=== PATIENT | female | born 1940 | race Caucasian/White ===

== ENCOUNTER 2017-02-18 01:30 | Observation (INO) ==
--- NOTE | 2017-02-18 04:04 | Emergency Department Note ---
Arrival - Arrival Chief Complaint: Syncope ED Nursing Triage Note: Patient to triage via WC from sleep lab after an LEAD RECREATION ASSISTANT was called for patient having syncopal episode after ambulating from restroom. Patient states she she stood up, she noted herself to feel hot in the face and dizzy. LEAD RECREATION ASSISTANT team has provided EKG print outs from sleep lab. Patient has readings of fib with RVR. EKG done in triage. Patient does have hx of A fib and had an ablasion in jul of this year. Mode of Arrival: Wheelchair Time Seen by Provider: 02/18/17 01:58 - History of Present Illness HPI Narrative: This is a 76-year-old white female with a history of hypertension, hyperlipidemia, hypothyroidism and symptomatic paroxysmal atrial fibrillation which has been controlled by amiodarone but was unable to tolerate the side effects so had electrophysiologic studies with ablation in July 2016. In the past her episodes of atrial fibrillation have resulted in palpitations but she had one episode of syncope several years ago in connection with atrial fibrillation. After the ablation the patient's amiodarone was discontinued but she was continued on a beta-darrian which was recently stopped because of a heart rate of 52. The patient does not have a pacer. Patient also has sleep apnea for which she uses a CPAP machine. She was in the hospital having her third sleep study hoping to have sufficiently long periods of apnea to allow the government to pay for her CPAP machine. During the sleep study the patient got up to go to the bathroom and had a syncopal episode where she felt hot and dizzy and fell unconscious to the floor. Review of the tracing that occurred at the moment of syncope showed atrial fibrillation which is now returned to normal sinus rhythm Allergies/Adverse Reactions: Allergies Allergy/AdvReac Type Severity Reaction Status Date / Time levofloxacin [From Levaquin] Allergy RASH Verified 02/18/17 01:38 morphine Allergy Vomiting Verified 02/18/17 01:38 Penicillins Allergy RASH Verified 02/18/17 01:38 Sulfa (Sulfonamide Allergy Swelling Verified 02/18/17 01:38 Antibiotics) of Lip/Tongue/Throat sulfamethoxazole Allergy Unknown/Unable Verified 02/18/17 01:38 [From Bactrim] to obtain trimethoprim [From Bactrim] Allergy Unknown/Unable Verified 02/18/17 01:38 to obtain Home Medications: Home Medications Medication Instructions Recorded Confirmed Type Amlodipine Besylate 2.5 mg PO DAILY 05/15/16 08/12/16 History Clorazepate [Tranxene] 3.75 mg PO DAILY PRN 05/15/16 08/12/16 History Gabapentin 300 mg PO BEDTIME 05/15/16 08/12/16 History Meloxicam 7.5 mg PO BID 05/15/16 08/12/16 History Metoprolol Succinate 25 mg PO DAILY 05/15/16 08/12/16 History Valsartan/Hydrochlorothiazide 1 tablet PO DAILY 05/15/16 08/12/16 History [Valsartan-Hctz 160-12.5 mg Tab] Warfarin Sodium 4 mg PO DIRECTED 05/15/16 08/12/16 History Warfarin Sodium 5 mg PO DIRECTED 05/15/16 08/12/16 History Acetaminophen Tab [Tylenol Tab] 650 mg PO Q4H PRN #30 tablet 08/14/16 Rx Aspirin EC Tab 81 mg PO DAILY #30 tablet 08/14/16 Rx Pantoprazole Tab [Protonix Tab] 40 mg PO BID #60 tablet 08/14/16 Rx Review of System - Review of System Constitutional: Absent: fever, night sweats, weakness Eyes: Absent: redness, vision change Head/Ears/Nose/Throat: Absent: epistaxis, nasal drainage Respiratory: Absent: respiratory distress, wheezing Cardiovascular: Absent: dyspnea on exertion, orthopnea, edema Gastrointestinal: Absent: diarrhea, constipation, hematemesis, melena Genitourinary female: Absent: frequency, genital lesions, hematuria Musculoskeletal: Absent: joint swelling, lower back pain, leg pain, neck pain Skin: Absent: change in color, change in hair/nails, pruritus Neurological: Absent: numbness, paresthesias, confusion Psychiatric: Absent: suicidal thoughts Endocrine: Absent: heat intolerance, polydipsia, polyuria Hematological/Lymphatic: Absent: easy bruising, lymphadenopathy Allergic/Immunologic: Absent: urticaria, itchy eyes Medical,Surgical,& Family Hx - Medical History Cardio: History of: Cardiac Dysrhythmia (AFIB), Hypertension, Cardiovascular Problems (atrial fib, orthostasis) Neurology: No history of: Seizures Endocrine: History of: Dyslipidemia Respiratory: History of: Bronchitis Genitourinary: History of: Recurring Urinary Tract Infections Gastrointestinal: History of: GERD, GI Problems (chronic constipation) Reproductive: History of: Breast Cancer (left partial mastectomy 1999) Other: History of: Cancer (breat 1999) - Surgical History Abdominal Surgeries: Surgical HX of: Appendectomy Reproductive Surgeries: Surgical HX of;: Breast Surgery (left partial mastectomy ) - Family History Family History: Reports;: Family Cancer (brother), Family Diabetes (brother, father), Family Heart Disease (father), Family Hypertension (father), Family Stroke (mother) - Social History Smoking Status: Former smoker Frequency of Alcohol Use: None Type of Drug Use: None Exam Vital Signs: Vital Signs Temperature 97.7 F 02/18/17 01:38 Pulse Rate 98 H 02/18/17 01:38 Respiratory Rate 24 02/18/17 01:50 Blood Pressure 169/111 02/18/17 01:38 O2 Sat by Pulse Oximetry 95 02/18/17 01:32 - General Exam limited due to: ALOC - Head Head exam: Present: atraumatic, normocephalic - Eye Eye exam: Present: normal appearance, PERRL, EOMI - ENT ENT exam: Present: normal exam, normal oropharynx - Neck Neck exam: Present: normal inspection, full ROM - Chest Chest inspection: Present: normal inspection, symmetric chest wall rise - Respiratory Respiratory exam: Present: normal lung sounds bilaterally - Cardiovascular Cardiovascular exam: Present: regular rate, normal rhythm - Abdominal Exam Abdominal exam: Present: soft, normal bowel sounds - Extremities Exam Extremities exam: Present: normal inspection, full ROM - Back Exam Back exam: Present: normal inspection, full ROM - Neurological Exam Neurological exam: Present: alert, oriented X3 - Psychiatric Psychiatric exam: Present: normal affect, normal mood - Skin Skin exam: Present: warm, dry Course Course Narrative: Because the patient had a syncopal episode and because the syncopal episode was associated with atrial fibrillation it seems reasonable the patient should be admitted to the hospital for further evaluation and monitoring. The patient is now in normal sinus rhythm. Disposition Clinical Impression: Syncope, Atrial fibrillation with RVR Disposition: Still a Patient Additional Instructions: Because the patient had a syncopal episode and because the syncopal episode was associated with atrial fibrillation it seems reasonable the patient should be admitted to the hospital for further evaluation and monitoring. The patient is now in normal sinus rhythm
[2017-02-18 04:20] LABS: Basophils # 0.1 10*3/uL (0.0-0.2); Basophils % 0.6 % (0.0-0.8); Eosinophils # 0.4 10*3/uL (0.0-0.87); Hematocrit 35.7 VOL% (35.7-47.0); Hemoglobin 12.5 GM/DL (12.0-16.0); Immature Granulocytes % 0.4 %; Immature Granulocytes Absolute 0.04 #; Lymphocytes # 2.8 10*3/uL (1.4-4.0); Lymphocytes % 26.1 % (21.3-54.2); Mean Corpuscular Hemoglobin 31 PG (27-34); Mean Corpuscular Volume 89.5 FL (87-102); Mean Platelet Volume 10.3 FL (9.6-12.0); Monocytes # 0.9 10*3/uL (0.11-0.8); Monocytes % 8.2 % (1.7-12.7); Neutrophils # 6.6 10*3/uL (1.4-7.4); Neutrophils % 60.7 % (38.7-73.9); Platelet Count 244 T/CUMM (130-400); Red Blood Count 3.99 MC/CUMM (3.8-5.5); Red Cell Distribution Width 13.8 % (9.3-17.3); White Blood Count 10.8 T/CUMM (4-12)
[2017-02-18 04:36] LABS: Albumin 3.8 G/DL (3.4-5.0); Bilirubin,Total 0.5 MG/DL (0.2-1.0); Calcium 9.8 MG/DL (8.5-10.1); Osmolality,Calculated 279.4 MOS/KG (273-304); Potassium 3.6 MMOL/L (3.5-5.1); Total Protein 7.4 G/DL (6.4-8.3)
[2017-02-18 04:39] LABS: Troponin I Only 0.133 NG/ML (0.00-0.045)
[2017-02-18] MEDS ORDERED: ONDANSETRON 4 MG/2 ML VIAL IV PRN (05:05)
--- NOTE | 2017-02-18 05:57 | EKG Report ---
Stationary ECG Study [facility] ER Test Date: 02/18/2017 1:37:40 AM Pat Name: YANI PIERCE Department: Room: 265 Gender: F Rouge Presser: Mary : 1940 Requested by: Kenn Watts Order Number: [id number] Reading MD: ABRAHAN MALCOLM Intervals [place] Rate: 100 P: 87 RI: 185 QRS: 60 QRSD: 90 T: 32 QT: 361 QTc: 418 Interpretive Statements SINUS TACHYCARDIA WITH SINUS ARRHYTHMIA MODERATE ST DEPRESSION Electronically Signed On 02-18-17 16:17:35 CDT by ABRAHAN MALCOLM [email or web address]
--- NOTE | 2017-02-18 06:16 | Hospitalist History & Physical ---
Assessment and Plan - Time spent with patient Time spent with patient: Greater than 30 minutes (1) Syncope Status: Acute Assessment and plan: Admit to hospitalist services. Admit to telemetry unit for observation. O2 per unit protocol. EKG and CXR performed in ED. Report pending. Current Visit: Yes (2) Atrial fibrillation with RVR Status: Acute Assessment and plan: As above. Current Visit: Yes (3) Hypertension Status: Acute Assessment and plan: Home meds need to be confirmed before continuing. Current Visit: Yes (4) DVT prophylaxis Status: Acute Assessment and plan: Lovenox 40 mg SQ daily. Current Visit: Yes History of Present Illness Chief complaint: syncope, afib with RVR History of present illness: Ms. Arthur is a 76 year old female with a past medical history of afib with RVR s /p ablation in July and HTN who was brought to the ED tonight after a syncopal event while doing a sleep study. Ms. Arthur reports that she was given ambien to help her sleep, after which she felt lightheaded and warm all over. She sat down until the feeling subsided, and then went to the bathroom. After using the bathroom, she began walking back to her bed when she had a syncopal episode and woke up on the floor. She was aware enough to know that she was assisted to the floor by sleep study staff. Sleep study staff report that there was a brief moment of Afib with a HR of 139 just prior to the syncopal episode. She reports that this was unlike any previous episodes of afib in which she was able to feel palpiations during afib and the return to sinus rhythm. She felt no palpitations during this event. Currently, she is awake, alert and oriented and has no continuing complaints. Hospitalist services were consulted, and the patient will be admitted to the telemetry unit for further evaluation and treatment. Home Medications Medication Instructions Recorded Confirmed Type Amlodipine Besylate 2.5 mg PO DAILY 05/15/16 08/12/16 History Clorazepate [Tranxene] 3.75 mg PO DAILY PRN 05/15/16 08/12/16 History Gabapentin 300 mg PO BEDTIME 05/15/16 08/12/16 History Meloxicam 7.5 mg PO BID 05/15/16 08/12/16 History Metoprolol Succinate 25 mg PO DAILY 05/15/16 08/12/16 History Valsartan/Hydrochlorothiazide 1 tablet PO DAILY 05/15/16 08/12/16 History [Valsartan-Hctz 160-12.5 mg Tab] Warfarin Sodium 4 mg PO DIRECTED 05/15/16 08/12/16 History Warfarin Sodium 5 mg PO DIRECTED 05/15/16 08/12/16 History Acetaminophen Tab [Tylenol Tab] 650 mg PO Q4H PRN #30 tablet 08/14/16 Rx Aspirin EC Tab 81 mg PO DAILY #30 tablet 08/14/16 Rx Pantoprazole Tab [Protonix Tab] 40 mg PO BID #60 tablet 08/14/16 Rx Allergies Allergy/AdvReac Type Severity Reaction Status Date / Time levofloxacin [From Levaquin] Allergy RASH Verified 02/18/17 01:38 morphine Allergy Vomiting Verified 02/18/17 01:38 Penicillins Allergy RASH Verified 02/18/17 01:38 Sulfa (Sulfonamide Allergy Swelling Verified 02/18/17 01:38 Antibiotics) of Lip/Tongue/Throat sulfamethoxazole Allergy Unknown/Unable Verified 02/18/17 01:38 [From Bactrim] to obtain trimethoprim [From Bactrim] Allergy Unknown/Unable Verified 02/18/17 01:38 to obtain Medical,Surgical,& Family Hx - Medical History Cardio: History of: Cardiac Dysrhythmia (AFIB), Hypertension, Cardiovascular Problems (atrial fib, orthostasis) Neurology: No history of: Cerebrovascular Accident, Seizures Endocrine: History of: Dyslipidemia No history of: Diabetes Mellitus (IDDM), Diabetes Mellitus (NIDDM) Respiratory: History of: Bronchitis Genitourinary: History of: Recurring Urinary Tract Infections Gastrointestinal: History of: GERD, GI Problems (chronic constipation) Reproductive: History of: Breast Cancer (left partial mastectomy 1999) Other: History of: Cancer (breat 1999) - Surgical History Abdominal Surgeries: Surgical HX of: Appendectomy Reproductive Surgeries: Surgical HX of;: Breast Surgery (left partial mastectomy ) - Family History Family History: Reports;: Family Cancer (brother), Family Diabetes (brother, father), Family Heart Disease (father), Family Hypertension (father), Family Stroke (mother) - Social History Smoking Status: Former smoker Have you smoked in the last 12 months: No Frequency of Alcohol Use: None Type of Drug Use: None Marital Status: Lives With:: Spouse Functional capacity: independent ambulation - Constitutional Constitutional: Present: lethargy, weakness. Absent: fever(s) - EENT Eyes: Absent: blurry vision, diplopia, loss of vision Ears: Absent: decreased hearing, ear discharge, ear pain Nose, mouth and throat: Absent: headache(s), nasal congestion, sore throat - Cardiovascular Cardiovascular: Present: lightheadedness. Absent: chest pain at rest, chest pain with activity, dyspnea, edema, orthopnea, palpitations - Respiratory Respiratory: Absent: cough, dyspnea, wheezing - Gastrointestinal Gastrointestinal: Absent: abdominal pain, constipation, diarrhea, nausea, vomiting - Genitourinary Genitourinary: Absent: dysuria, urinary frequency - Musculoskeletal Musculoskeletal: Absent: arthralgias, back pain, joint swelling, muscle weakness , myalgias - Neurological Neurological: Present: syncope. Absent: dizziness, numbness, paresthesias - Psychiatric Psychiatric: Absent: anxiety, depression - Endocrine Endocrine: Absent: cold intolerance, polydipsia, polyphagia, polyuria - Hematologic/Lymphatic Hematologic/Lymphatic: Absent: easy bleeding, easy bruising Exam - Constitutional Vitals: Period Temp Pulse Resp BP Sys/Kamara Pulse Ox Last 24 Hr 97.7 F-97.7 F 98-98 20-24 165-169/111-111 94-95 Exam: Constitutional System: Afebrile. Awake, alert and oriented x 3. No distress. No tremulousness. Head: Normocephalic, atraumatic. Ears, Nose and Throat System: No pain or tenderness. No epistaxis or discharge Eyes System: Pupils equal, round, and reactive. Extraocular muscles intact. Neck: Supple, without adenopathy, No jugular venous distention. No thyromegaly, neck mass, or prior surgery apparent. Respiratory System: Chest clear to auscultation. Cardiovascular System: Heart with regular rate and rhythm. No murmur. GI System: Abdomen soft, nontender. Normo active bowel sounds present. Musculoskeletal System: limbs with no pedal edema. Full distal pulses. Normal capillary refill. Neurological System: No discernable sensory deficit. No aphasia Psychiatric System: Conversation is rational Results - Labs CBC & BMP: 02/18/17 02:32 02/18/17 02:32 Lab Results: I have reviewed the past 24 hour labs
--- NOTE | 2017-02-18 07:32 | XRay Report ---
Exam: XR chest 1V portable Date: 02/18/2017 4:12 AM Indication: Syncope Comparison: 05/15/2016 Technical: AP portable Findings: Minimal calcification in the costochondral cartilage in tracheobronchial tree is also partially calcified. No obvious infiltrate or effusion. Mediastinum reveals a few tiny small calcified nodes. External cardiac leads are otherwise present. The heart is normal in size. Impression: 1. No acute cardiopulmonary pathology with underlying mild scarring in the lung anderson. PROCEDURE INTERPRETED AT [facility] DEPARTMENT OF RADIOLOGY Final Report Signed by: Dr. Jean Carlos Pichardo
[2017-02-18] MEDS: PANTOPRAZOLE 40 MG TABLET PO SCH ×2 (08:31→20:47)
[2017-02-18] MEDS ORDERED: ENOXAPARIN 40 MG/0.4 ML SYRINGE SUBCUT SCH (09:00)
--- NOTE | 2017-02-18 12:04 | Cardiology Consult Note ---
<Kiley Luna E - Last Filed: 02/18/17 13:40> Assessment and Plan - Time spent with patient Time spent with patient: Greater than 30 minutes (due to assessment, plan, and documentation) (1) Syncope Status: Acute Assessment and plan: See plan of care listed below. Current Visit: Yes (2) Atrial fibrillation with RVR Status: Acute Assessment and plan: See plan of care listed below. Current Visit: Yes (3) Hypertension Status: Chronic Assessment and plan: See plan of care listed below. Current Visit: Yes (4) Hyperlipemia Status: Chronic Assessment and plan: See plan of care listed below. Current Visit: No History of Present Illness - Data of Consult Patient: known to practice within the last 3 years Consult date: 02/18/17 Requesting Physician: Bravo Deutsch Primary care physician: Kenn Dominique - Consult Narrative Reason for consult: syncope, AFRVR History of present illness: Table Hand: Dr. Cummings EP: Dr. Parish PCP: Dr. Dominique Ms. Arthur is a 76 year old female with risk factors significant for: hypertension, dyslipidemia, sedentary lifestyle, and former smoker. She has a history of paroxysmal atrial fibrillation and is status post ablation in July 2016. She was previously chronically anticoagulated with Coumadin. She had a low risk myocardial scan June 2016 and has had no significant change in her symptomatology since that time. Ms. Arthur presented to the emergency room around 3 AM after syncopal episode. She was undergoing a sleep study last night and had been given Ambien to help her sleep. She got up to go the restroom and when she came back before she sat down she felt as if her blood pressure dropped and she became lightheaded and then had a flushed and warm sensation all over her body. She reports she remembers feeling like she was going to faint and the next thing she knew, she woke up on the floor. She states that she could feel her heart racing just prior to her syncopal episode and afterwards. Once she regained consciousness, she was assisted to the bed and when the sleep center staff checked her vital signs, her heart rate was 139 and her blood pressure was 210/111. Upon review of her clinic record, Ms. Arthur called the clinic 02/10/2017 and reported that she discontinued her Toprol and valsartan hydrochlorothiazide due to increased fatigue, orthostatic symptoms, and low blood pressures. At that time she reported that her symptoms resolved upon stopping the medicines and her blood pressure and heart rate remained unchanged. There was some concern over her remaining off of the beta-darrian in the event that she might possibly go back into A. fib. She had not been on anticoagulation since November 2016 after a Holter monitor in August 2016 showed no atrial fibrillation she had no history of stroke or TIA. She is noted to have a [id number] score of 4. 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 Upon arrival to our emergency room, she had rates in the 90s-100s. Triage EKG noted sinus tachycardia. H&H is stable at 12.5 and 35.7. Creatinine is 1.1. She does have a history of mild renal insufficiency upon review of prior records. Potassium is 3.6. We will follow her BMP and place her on potassium and magnesium replacement protocol. She was noted to have a trivial troponin elevation of 0.133, likely due to her elevated heart rates during the night. She did have a low risk myocardial scan 07/08/16. Dr. Hall to follow with further plan and addendum. ASSESSMENT/PLAN: 1. SYNCOPE: Likely due to her episode of AFRVR. We will check carotid duplexes to rule out carotid stenosis. 2. PAF W/ RVR: We have started her on Cardizem and will see how she tolerates this. She has had numerous side effects to medications in the past. [id number]- VASC score of 4. We will resume chronic anticoagulation and start her on Eliquis 5mg PO BID. Will also start her on Vitamin C 1000mg po BID. 3. HYPERTENSION: Has been elevated since admission. Her home medications are still not confirmed in the computer. Given her recent episode of A. fib with RVR, we will start her on Cardizem 30 mg p.o. 3 times daily and continue to monitor. 4. HYPERLIPIDEMIA: Patient has been intolerant to statins in the past has experienced severe myalgias. She was trialed on Zetia and even experienced myalgias with this medication. She has been off lipid-lowering agents and has been trying to diet and exercise. We will check a lipid panel in the morning. CC: Bravo Deutsch MD - Home Medications and Allergies Home Medications: Home Medications Medication Instructions Recorded Confirmed Type Amlodipine Besylate 2.5 mg PO DAILY 05/15/16 08/12/16 History Clorazepate [Tranxene] 3.75 mg PO DAILY PRN 05/15/16 08/12/16 History Gabapentin 300 mg PO BEDTIME 05/15/16 08/12/16 History Meloxicam 7.5 mg PO BID 05/15/16 08/12/16 History Metoprolol Succinate 25 mg PO DAILY 05/15/16 08/12/16 History Valsartan/Hydrochlorothiazide 1 tablet PO DAILY 05/15/16 08/12/16 History [Valsartan-Hctz 160-12.5 mg Tab] Warfarin Sodium 4 mg PO DIRECTED 05/15/16 08/12/16 History Warfarin Sodium 5 mg PO DIRECTED 05/15/16 08/12/16 History Acetaminophen Tab [Tylenol Tab] 650 mg PO Q4H PRN #30 tablet 08/14/16 Rx Aspirin EC Tab 81 mg PO DAILY #30 tablet 08/14/16 Rx Pantoprazole Tab [Protonix Tab] 40 mg PO BID #60 tablet 08/14/16 Rx Allergies/Adverse Reactions: Allergies Allergy/AdvReac Type Severity Reaction Status Date / Time levofloxacin [From Levaquin] Allergy RASH Verified 02/18/17 01:38 morphine Allergy Vomiting Verified 02/18/17 01:38 Penicillins Allergy RASH Verified 02/18/17 01:38 Sulfa (Sulfonamide Allergy Swelling Verified 02/18/17 01:38 Antibiotics) of Lip/Tongue/Throat sulfamethoxazole Allergy Unknown/Unable Verified 02/18/17 01:38 [From Bactrim] to obtain trimethoprim [From Bactrim] Allergy Unknown/Unable Verified 02/18/17 01:38 to obtain Review of systems: - Constitutional: Present: fatigue, As per HPI. Absent: anorexia, chills, daytime sleepiness, excessive sweating, fever(s), frequent falls, headache(s), increased appetite, lethargy, malaise, night sweats, stops breathing during sleep, weakness, weight gain, weight loss. - EENT Eyes: Present: As per HPI. Absent: blurry vision, diplopia, loss of vision Ears: Present: As per HPI. Absent: decreased hearing, ear discharge, ear pain Nose, mouth and throat: Present: As per HPI. Absent: dysphagia, epistaxis, headache(s), hoarseness, lip swelling, nasal congestion, neck mass, neck pain, sinus pressure, sore throat, throat swelling, tongue swelling, vertigo - Cardiovascular: Present: palpitations, as per HPI. Absent: chest pain at rest , chest pain with activity, dyspnea, dyspnea on exertion, edema, claudication, diaphoresis, radiating jaw, neck or arm pain, lightheadedness, orthopnea, PND - Respiratory: Present: as per HPI. Absent: dyspnea, dyspnea on exertion, cough , hemoptysis, wheezing, snoring, pain on inspiration - Gastrointestinal: Present: As per HPI. Absent: abdominal pain, bloating, change in bowel habits, constipation, diarrhea, heartburn, hematemesis, hematochezia, loose stools, melena, nausea, vomiting - Genitourinary: Present: As per HPI. Absent: difficulty urinating, dysuria, flank pain, hematuria, nocturia, urinary frequency, urinary incontinence - Musculoskeletal: Present: As per HPI. Absent: arthralgias, back pain, joint swelling, limited range of motion, muscle cramps, muscle weakness, myalgias - Neurological: Present: syncope, As per HPI. Absent: abnormal gait, abnormal speech, behavioral changes, confusion, convulsions, disequilibrium, dizziness, focal weakness, frequent falls, headache(s), memory loss, numbness, paresthesias , radicular pain, tremor(s) - Psychiatric: Present: As per HPI. Absent: anxiety, confusion, depression, panic attacks - Endocrine: Present: fatigue, As per HPI. Absent: cold intolerance, heat intolerance, polydipsia, polyphagia - Hematologic/Lymphatic: Present: As per HPI. Absent: easy bleeding, easy bruising, lymphadenopathy Medical,Surgical,& Family Hx - Medical History Cardio: History of: Cardiac Dysrhythmia (AFIB), Hypertension, Cardiovascular Problems (atrial fib, orthostasis) Neurology: No history of: Cerebrovascular Accident, Seizures Endocrine: History of: Dyslipidemia No history of: Diabetes Mellitus (IDDM), Diabetes Mellitus (NIDDM) Respiratory: History of: Bronchitis, Obstructive Sleep Apnea Genitourinary: History of: Recurring Urinary Tract Infections Gastrointestinal: History of: GERD, GI Problems (chronic constipation) Reproductive: History of: Breast Cancer (left partial mastectomy 1999) Other: History of: Cancer (breat 1999) - Surgical History Abdominal Surgeries: Surgical HX of: Appendectomy Reproductive Surgeries: Surgical HX of;: Breast Surgery (left partial mastectomy ) - Family History Family History: Reports;: Family Cancer (brother), Family Diabetes (brother, father), Family Heart Disease (father), Family Hypertension (father), Family Stroke (mother) - Social History Smoking Status: Former smoker Frequency of Alcohol Use: None Type of Drug Use: None Marital Status: Lives With:: Sibling Functional capacity: independent ambulation Physical Examination Vital Signs Temp Pulse Resp BP Pulse Ox 97.7 F 98 H 22 165/111 95 02/18/17 01:32 02/18/17 01:32 02/18/17 01:32 02/18/17 01:32 02/18/17 01:32 Exam: General appearance: Appears well. Pleasant and cooperative. Overweight, no acute distress. Head exam: Present: normal inspection, normocephalic, atraumatic. Absent: hematoma, laceration Eye exam: Present: EOMI. Absent: conjunctival injection, nystagmus, periorbital swelling, scleral icterus, laceration to eyelids, jaundice Pupils: Present: PERRL. Absent: constricted, dilated, fixed, irregular, unequal ENT exam: Present: normal exam, normal external ear exam, mucous membranes moist. Neck exam: Present: normal inspection, midline trachea. Absent: masses, lymphadenopathy, tenderness, thyromegaly, carotid bruit Respiratory exam: Present: fine crackles to right base posteriorly, otherwise clear to auscultation bilaterally. Absent: accessory muscle use, chest wall tenderness, rhonchi, wheezing. Cardiovascular exam: Present: regular rate and rhythm. Absent: gallop, JVD, rubs, murmur GI/Abdominal exam: Present: normal bowel sounds, soft. Absent: distended, firm , hernia, mass, tenderness. Extremities exam: Present: Normal Gait, No Clubbing, No Cyanosis, Upper Extr. Pulses 2+, Lower Extr. Pulses 2+, No edema. Capillary refill less than 3 seconds. Musculoskeletal: Present: No Fluid Collection, No Pain, Normal Range of Motion Back exam: Present: normal inspection. Absent: muscle spasm, vertebral tenderness Neurological exam: Present: awake, alert, oriented X3, Moves all extremities well without hemiparesis or paralysis. Grossly intact without resting or essential tremor Psychiatric exam: Present: normal affect, normal mood Skin exam: Present: normal color, warm, dry, intact. Absent: cyanosis, diaphoretic, rash, urticaria Result/EKG - Labs CBC & BMP: 02/18/17 02:32 02/18/17 02:32 Lab Results: I have reviewed the past 24 hour labs Labs: Laboratory Results - last 24 hr 02/18/17 02/18/17 02:32 02:32 WBC 10.8 RBC 3.99 Hgb 12.5 Hct 35.7 MCV 89.5 MCH 31 MCHC 35.0 RDW 13.8 Plt Count 244 MPV 10.3 Neut % (Auto) 60.7 Lymph % (Auto) 26.1 [place] % (Auto) 8.2 Eos % (Auto) 4.0 Baso % (Auto) 0.6 Neut # (Auto) 6.6 Lymph # (Auto) 2.8 [place] # (Auto) 0.9 H Eos # (Auto) 0.4 Baso # (Auto) 0.1 Immature Gran % 0.4 Nucleated RBC % 0.0 Immature Gran # 0.04 Nucleated RBCs # 0.00 Immature Plt Fraction 0.0 Sodium 140 Potassium 3.6 Chloride 104 Carbon Dioxide 30 Anion Gap 9.6 BUN 16 Creatinine 1.10 H GFR Calculation 56 BUN/Creatinine Ratio 14.00 Glucose 100 Calculated Osmolality 279.4 Calcium 9.8 Total Bilirubin 0.50 AST 19 ALT 18 Alkaline Phosphatase 82 Troponin I 0.133 H Total Protein 7.4 Albumin 3.8 Globulin 3.6 H Albumin/Globulin Ratio 1.0 L - EKG EKG results: interpreted by me, sinus rhythm <Luly Hall - Last Filed: 02/18/17 17:47> History of Present Illness - Consult Narrative History of present illness: I have personally interviewed and evaluated the patient, reviewed the chart and discussed medical decision-making with practitioner Jeremy. I have read this note and agree with her documentation here in. Because she had a questionable side effect of fatigue while on the beta-darrian, which could have been related to her rate, I am going to try calcium channel darrian. CC: Bravo Deutsch MD Physical Examination Vital Signs Temp Pulse Resp BP Pulse Ox 97.7 F 98 H 22 165/111 95 02/18/17 01:32 02/18/17 01:32 02/18/17 01:32 02/18/17 01:32 02/18/17 01:32 Result/EKG - Labs CBC & BMP: 02/18/17 02:32 02/18/17 02:32 Labs: Laboratory Results - last 24 hr 02/18/17 02/18/17 02:32 02:32 WBC 10.8 RBC 3.99 Hgb 12.5 Hct 35.7 MCV 89.5 MCH 31 MCHC 35.0 RDW 13.8 Plt Count 244 MPV 10.3 Neut % (Auto) 60.7 Lymph % (Auto) 26.1 [place] % (Auto) 8.2 Eos % (Auto) 4.0 Baso % (Auto) 0.6 Neut # (Auto) 6.6 Lymph # (Auto) 2.8 [place] # (Auto) 0.9 H Eos # (Auto) 0.4 Baso # (Auto) 0.1 Immature Gran % 0.4 Nucleated RBC % 0.0 Immature Gran # 0.04 Nucleated RBCs # 0.00 Immature Plt Fraction 0.0 Sodium 140 Potassium 3.6 Chloride 104 Carbon Dioxide 30 Anion Gap 9.6 BUN 16 Creatinine 1.10 H GFR Calculation 56 BUN/Creatinine Ratio 14.00 Glucose 100 Calculated Osmolality 279.4 Calcium 9.8 Total Bilirubin 0.50 AST 19 ALT 18 Alkaline Phosphatase 82 Troponin I 0.133 H Total Protein 7.4 Albumin 3.8 Globulin 3.6 H Albumin/Globulin Ratio 1.0 L
[2017-02-18] MEDS ORDERED: MAGNESIUM SULF RIDER 2 GM in PREMIX 1 EACH IV PRN (14:02)
[2017-02-18] MEDS ORDERED: MAGNESIUM SULF RIDER 4 GM in PREMIX 1 EACH IV PRN (14:02)
[2017-02-18] MEDS: DILTIAZEM 30 MG TABLET PO SCH ×2 (14:23→20:48)
--- NOTE | 2017-02-18 17:01 | Ultrasound Report ---
Exam:US carotid duplex BI Date:02/18/2017 1:50 PM Indication: Syncope Color Doppler, wave form analysis, and grayscale analysis of the cervical carotid arteries was performed. There is partially calcified plaque in either carotid bulb, left more than right. Waveform analysis shows proper directional flow of the cervical carotid arteries. There is antegrade flow in either vertebral artery. There is no increased peak systolic velocity within the internal carotid arteries where seen to suggest hemodynamically significant stenosis. Impression: There is 0-15% diameter reduction narrowing of either internal carotid artery using indirect NASCET criteria Right Side Flow velocities centimeters per second Common carotid artery:76.8 Proximal ICA:54.6 Distal ICA:102.9 External carotid artery:74.6 Vertebral artery:58.6 ICA/CCA ratio:1.3 Measurements in millimeters Distal ICA: 5.2 Left SIde Flow velocities centimeters per second Common carotid artery 86.3 Proximal ICA:60.2 Distal ICA:79.4 External carotid artery:58.5 Vertebral artery:53.7 ICA/CCA ratio: 0.9 Measurements in millimeters Distal ICA: 7.2 Today studies were performed utilizing indirect NASCET criteria PROCEDURE INTERPRETED AT [facility] DEPARTMENT OF RADIOLOGY Final Report Signed by: Dr. Alexa Butterfield
[2017-02-18] MEDS: APIXABAN 5 MG TABLET PO SCH (20:47)
[2017-02-18] MEDS: ASCORBIC ACID 500 MG TABLET PO SCH (20:47)
[2017-02-18] MEDS: ACETAMINOPHEN 325 MG TABLET PO PRN (21:54)
[2017-02-19 04:16] LABS: Basophils # 0.1 10*3/uL (0.0-0.2); Basophils % 1.1 % (0.0-0.8); Eosinophils # 0.4 10*3/uL (0.0-0.87); Eosinophils % 4.9 % (0.00-10.9); Hemoglobin 12.1 GM/DL (12.0-16.0); Immature Granulocytes % 0.5 %; Immature Granulocytes Absolute 0.04 #; Lymphocytes # 2.7 10*3/uL (1.4-4.0); Lymphocytes % 32.8 % (21.3-54.2); Mean Corpuscular HGB Conc 35.6 GM/DL (32-36); Mean Corpuscular Hemoglobin 32 PG (27-34); Mean Corpuscular Volume 88.5 FL (87-102); Mean Platelet Volume 9.4 FL (9.6-12.0); Monocytes # 0.8 10*3/uL (0.11-0.8); Neutrophils # 4.2 10*3/uL (1.4-7.4); Neutrophils % 50.7 % (38.7-73.9); Platelet Count 221 T/CUMM (130-400); Red Blood Count 3.84 MC/CUMM (3.8-5.5); Red Cell Distribution Width 13.8 % (9.3-17.3); White Blood Count 8.3 T/CUMM (4-12)
[2017-02-19 04:49] LABS: Calcium 9.6 MG/DL (8.5-10.1); Magnesium 2.2 MG/DL (1.8-2.4); Osmolality,Calculated 280.4 MOS/KG (273-304); Potassium 4.6 MMOL/L (3.5-5.1)
[2017-02-19 04:49] LABS: Risk Ratio 4.87; VLDL CHOLESTEROL 28.2 MG/DL
[2017-02-19] MEDS: ACETAMINOPHEN 325 MG TABLET PO PRN (06:23)
[2017-02-19] MEDS: PANTOPRAZOLE 40 MG TABLET PO SCH (08:35)
[2017-02-19] MEDS: DILTIAZEM 30 MG TABLET PO SCH (08:35)
[2017-02-19] MEDS: APIXABAN 5 MG TABLET PO SCH (08:35)
[2017-02-19] MEDS: ASCORBIC ACID 500 MG TABLET PO SCH (08:35)
--- NOTE | 2017-02-19 11:23 | Discharge Summary ---
Hospital Course - Hospital Course Hospital Course: The patient was admitted to the hospital with shortness of breath and irregular heartbeat. She was found to have intermittent atrial fibrillation with rapid ventricular response. The patient improved on short acting Cardizem. The patient slept well and feels much better. She is ready for discharge home today and follow-up as an outpatient for further medication adjustments. I coordinate care with Dr. Hall prior to the patient's discharge. We will have her restart warfarin and follow-up INR in the office. On the date of discharge, chest is clear, heart has regular rate and rhythm, and telemetry confirms sinus rhythm. Patient medications were reconciled upon admission, and again at the time of discharge. The patient was screened for tobacco use and found to be a never smoker. The patient's medical decsion maker is themself, and when asked, they asked to be Full code. Discharge Time was 32 minutes, including final examination, evaluation and planning, education, reconciliation of medications, writing prescriptions, coordinating care with case management specialist, and preparing discharge documentation. Diagnosis - Discharge Diagnosis (1) Atrial fibrillation with rapid ventricular response Status: Resolved (2) Hypertension Status: Chronic Discharge Plan - Discharge Data Disposition: Disch To Home/Self Care Condition at Discharge: Stable Activity: resume usual activities as tolerated - Discharge Medications New Diltiazem Tab [Cardizem Tab] 30 mg PO TID #120 tablet Ascorbic Acid Tab [Vitamin C Tab] 1,000 mg PO BID #100 tablet Continue Famotidine Tab [Pepcid Tab] 20 mg PO DAILY Aspirin EC Tab 81 mg PO DAILY #100 tablet Clorazepate [Tranxene] 3.75 mg PO DAILY PRN #60 PRN Reason: Anxiety Warfarin Sodium 4 mg PO DIRECTED #60 Discontinued Metoprolol Succinate 25 mg PO DAILY Amlodipine Besylate 2.5 mg PO DAILY Acetaminophen Tab [Tylenol Tab] 650 mg PO Q4H PRN #30 tablet PRN Reason: Fever, Headache, Mild Pain Valsartan [Valsartan] 80 mg PO DAILY - Follow Up or Referral - Forms/Instructions Exam - Constitutional Vitals: Period Temp Pulse Resp BP Sys/Kamara Pulse Ox Last 24 Hr 96.4 F-98.9 F 52-79 16-18 144-196/62-92 91-98 Discharge Results Procedures and tests throughout hospitalization: Pending Orders 02/20/17 04:00 BMP w/ Mg [Basic Metabolic Panel w/Mg] IN AM Comp Blood Count Auto Diff IN AM Labs on day of discharge: Labs from last 24 hours 02/19/17 02/19/17 02/19/17 03:54 03:53 03:53 WBC 8.3 RBC 3.84 Hgb 12.1 Hct 34.0 L MCV 88.5 MCH 32 MCHC 35.6 RDW 13.8 Plt Count 221 MPV 9.4 L Neut % (Auto) 50.7 Lymph % (Auto) 32.8 [place] % (Auto) 10.0 Eos % (Auto) 4.9 Baso % (Auto) 1.1 H Neut # (Auto) 4.2 Lymph # (Auto) 2.7 [place] # (Auto) 0.8 Eos # (Auto) 0.4 Baso # (Auto) 0.1 Immature Gran % 0.5 Nucleated RBC % 0.0 Immature Gran # 0.04 Nucleated RBCs # 0.00 Immature Plt Fraction 0.0 Sodium 140 Potassium 4.6 Chloride 104 Carbon Dioxide 31 Anion Gap 9.6 BUN 18 Creatinine 1.20 H GFR Calculation 51 BUN/Creatinine Ratio 15.00 Glucose 99 Calculated Osmolality 280.4 Calcium 9.6 Magnesium 2.2 Triglycerides 141 Cholesterol 224 H LDL Cholesterol 157.0 VLDL Cholesterol 28.2 HDL Cholesterol 46 Heart Disease Risk Ratio 4.87 DS: Provider Date of admission: 02/18/17 05:05 Primary care physician: Kenn Dominique MD Attending physician on admission: Kaleb Marshall MD Consults: 02/18/17 08:22 Consult to Physician [CONS] Routine Comment: afib, history of ablation Consulting Provider: Efrain Parish Discharging clinician: Bravo Deutsch MD
[2017-02-19 12:01] VITALS: BP 159/99
--- NOTE | 2017-02-19 12:15 | Cardiology Progress Note ---
<Kiley Luna E - Last Filed: 02/19/17 15:58> Assessment and Plan - Time spent with patient Time spent with patient: Less than 30 minutes (1) Syncope Status: Acute Assessment and plan: See plan of care listed below. (2) Atrial fibrillation with RVR Status: Acute Assessment and plan: See plan of care listed below. (3) Hypertension Status: Chronic Assessment and plan: See plan of care listed below. (4) Hyperlipemia Status: Chronic Assessment and plan: See plan of care listed below. Cardiology - PN: Subj Interval history: Gifted Teacher: Dr. Cummings EP: Dr. Parish PCP: Dr. Dominique SUMMARY: Ms. Arthur is a 76-year-old female who presented to the emergency room after an episode of A. fib RVR and syncope during a sleep study. Beta darrian was recently stopped a couple of weeks ago and she had been off of anticoagulation since November 2016 after a Holter monitor in August 2016 showed no atrial fibrillation and she had no history of stroke or TIA. She converted to NSR on her own. 2016: Since admission, she has not had recurrent episodes of AFRVR. Since she had a questionable side effect of fatigue while on the beta- darrian, which could have been related to her rate, we have started her on calcium channel darrian. Anticoagulation was resumed, labs stable. She is being discharged home today and will follow up with Dr. Cummings in a couple weeks. She is to mushroom picker a 30 day event monitor from the [facility] upon discharge. ASSESSMENT/PLAN: 1. SYNCOPE: Likely due to her episode of AFRVR. Carotid duplexes showed 0-15% stenosis bilaterally. 2. PAF W/ RVR: She was started on calcium channel darrian during admission. She has had numerous side effects to medications in the past. [id number] score of 4. We will resume chronic anticoagulation. Will also start her on Vitamin C 1000mg po BID. 3. HYPERTENSION: Has been elevated since admission. Her home medications are still not confirmed in the computer. Given her recent episode of A. fib with RVR, she was started on Cardizem 30 mg p.o. 3 times daily. 4. HYPERLIPIDEMIA: Patient has been intolerant to statins in the past has experienced severe myalgias. She was trialed on Zetia and even experienced myalgias with this medication. She has been off lipid-lowering agents and has been trying to diet and exercise. Lipid panel revealed triglycerides 141, cholesterol 224, LDL 157, and HDL 46. Exam (Progress Note) - Constitutional Vitals: Period Temp Pulse Resp BP Sys/Kamara Pulse Ox Last 24 Hr 96.4 F-98.9 F 52-79 16-18 144-196/62-99 91-98 Exam: General appearance: Appears well. Pleasant and cooperative. Overweight, no acute distress. Head exam: Present: normal inspection, normocephalic, atraumatic. Absent: hematoma, laceration Eye exam: Present: EOMI. Absent: conjunctival injection, nystagmus, periorbital swelling, scleral icterus, laceration to eyelids, jaundice Pupils: Present: PERRL. Absent: constricted, dilated, fixed, irregular, unequal ENT exam: Present: normal exam, normal external ear exam, mucous membranes moist. Neck exam: Present: normal inspection, midline trachea. Absent: masses, lymphadenopathy, tenderness, thyromegaly, carotid bruit Respiratory exam: Present: fine crackles to right base posteriorly, otherwise clear to auscultation bilaterally. Absent: accessory muscle use, chest wall tenderness, rhonchi, wheezing. Cardiovascular exam: Present: regular rate and rhythm. Absent: gallop, JVD, rubs, murmur GI/Abdominal exam: Present: normal bowel sounds, soft. Absent: distended, firm , hernia, mass, tenderness. Extremities exam: Present: Normal Gait, No Clubbing, No Cyanosis, Upper Extr. Pulses 2+, Lower Extr. Pulses 2+, No edema. Capillary refill less than 3 seconds. Musculoskeletal: Present: No Fluid Collection, No Pain, Normal Range of Motion Back exam: Present: normal inspection. Absent: muscle spasm, vertebral tenderness Neurological exam: Present: awake, alert, oriented X3, Moves all extremities well without hemiparesis or paralysis. Grossly intact without resting or essential tremor Psychiatric exam: Present: normal affect, normal mood Skin exam: Present: normal color, warm, dry, intact. Absent: cyanosis, diaphoretic, rash, urticaria Result/EKG - Labs CBC & BMP: 02/19/17 03:53 02/19/17 03:53 Lab Results: I have reviewed the past 24 hour labs Labs: Laboratory Results - last 24 hr 02/19/17 02/19/17 02/19/17 03:53 03:53 03:54 WBC 8.3 RBC 3.84 Hgb 12.1 Hct 34.0 L MCV 88.5 MCH 32 MCHC 35.6 RDW 13.8 Plt Count 221 MPV 9.4 L Neut % (Auto) 50.7 Lymph % (Auto) 32.8 Harlan % (Auto) 10.0 Eos % (Auto) 4.9 Baso % (Auto) 1.1 H Neut # (Auto) 4.2 Lymph # (Auto) 2.7 Harlan # (Auto) 0.8 Eos # (Auto) 0.4 Baso # (Auto) 0.1 Immature Gran % 0.5 Nucleated RBC % 0.0 Immature Gran # 0.04 Nucleated RBCs # 0.00 Immature Plt Fraction 0.0 Sodium 140 Potassium 4.6 Chloride 104 Carbon Dioxide 31 Anion Gap 9.6 BUN 18 Creatinine 1.20 H GFR Calculation 51 BUN/Creatinine Ratio 15.00 Glucose 99 Calculated Osmolality 280.4 Calcium 9.6 Magnesium 2.2 Triglycerides 141 Cholesterol 224 H LDL Cholesterol 157.0 VLDL Cholesterol 28.2 HDL Cholesterol 46 Heart Disease Risk Ratio 4.87 - EKG EKG results: interpreted by me, sinus rhythm Specialty Discharge - Follow Up or Referrals Follow up with: Tigre Cummings MD [Physician] - 03/14/17 7:50 am <Luly Hall - Last Filed: 02/19/17 18:01> Cardiology - PN: Subj Interval history: I have personally interviewed and evaluated the patient, reviewed the chart and discussed medical decision-making with practitioner Jeremy. I have read this note and agree with her documentation here in. We are using short acting Cardizem to evaluate how her hemodynamics tolerate this. She should follow-up with her usual oncology social worker, and we will get a 30 day event monitor. I personally discussed the patient's medical plan with Dr. Deutsch. Exam (Progress Note) - Constitutional Vitals: Period Temp Pulse Resp BP Sys/Kamara Pulse Ox Last 24 Hr 96.4 F-98.9 F 52-79 16-18 144-196/62-99 91-96 Result/EKG - Labs CBC & BMP: 02/19/17 03:53 02/19/17 03:53 Labs: Laboratory Results - last 24 hr 02/19/17 02/19/17 02/19/17 03:53 03:53 03:54 WBC 8.3 RBC 3.84 Hgb 12.1 Hct 34.0 L MCV 88.5 MCH 32 MCHC 35.6 RDW 13.8 Plt Count 221 MPV 9.4 L Neut % (Auto) 50.7 Lymph % (Auto) 32.8 Harlan % (Auto) 10.0 Eos % (Auto) 4.9 Baso % (Auto) 1.1 H Neut # (Auto) 4.2 Lymph # (Auto) 2.7 Harlan # (Auto) 0.8 Eos # (Auto) 0.4 Baso # (Auto) 0.1 Immature Gran % 0.5 Nucleated RBC % 0.0 Immature Gran # 0.04 Nucleated RBCs # 0.00 Immature Plt Fraction 0.0 Sodium 140 Potassium 4.6 Chloride 104 Carbon Dioxide 31 Anion Gap 9.6 BUN 18 Creatinine 1.20 H GFR Calculation 51 BUN/Creatinine Ratio 15.00 Glucose 99 Calculated Osmolality 280.4 Calcium 9.6 Magnesium 2.2 Triglycerides 141 Cholesterol 224 H LDL Cholesterol 157.0 VLDL Cholesterol 28.2 HDL Cholesterol 46 Heart Disease Risk Ratio 4.87
== END 2017-02-19 14:34 | disposition home or self-care (01) ==
LOC: N.EDINP 01:30 → N.ED 01:30 → SUATTDRO 05:05 → N.TELES 05:34
PROVIDERS: ADMIT Internal Medicine Infectious Disease; ATTEND Internal Medicine

== ENCOUNTER 2022-03-26 08:44 | Observation (INO) ==
[2022-03-26] MEDS ORDERED: SODIUM CHLORIDE 0.9% 1,000 ML IV STA (09:16)
[2022-03-26] MEDS ORDERED: FAMOTIDINE 20 MG/2 ML VIAL IV STA (09:16)
[2022-03-26] MEDS ORDERED: diphenhydrAMINE 50 MG/1 ML VIAL IV STA (09:16)
[2022-03-26] MEDS ORDERED: methylPREDNISolone SOD SUC 40 MG/1 ML VIAL IV STA (09:17)
[2022-03-26 09:25] LABS: Basophils % 0.1 % (0.0-0.8); Eosinophils # 0.3 10*3/uL (0.0-0.87); Eosinophils % 2.3 % (0.00-10.9); Hematocrit 38.3 VOL% (35.7-47.0); Hemoglobin 13.1 GM/DL (12.0-16.0); Immature Granulocytes % 0.4 %; Immature Granulocytes Absolute 0.06 #; Lymphocytes # 1.8 10*3/uL (1.4-4.0); Lymphocytes % 13.6 % (21.3-54.2); Mean Corpuscular HGB Conc 34.2 GM/DL (32-36); Mean Corpuscular Volume 96.7 FL (87-102); Mean Platelet Volume 9.1 FL (9.6-12.0); Monocytes # 0.3 10*3/uL (0.11-0.8); Monocytes % 2.3 % (1.7-12.7); Neutrophils % 81.3 % (38.7-73.9); Platelet Count 255 T/CUMM (130-400); Red Blood Count 3.96 MC/CUMM (3.8-5.5); Red Cell Distribution Width 13.2 % (9.3-17.3); White Blood Count 13.4 T/CUMM (4-12)
[2022-03-26 09:42] LABS: Albumin 3.5 G/DL (3.4-5.0); Bilirubin,Total 0.7 MG/DL (0.20-1.00); Calcium 9.1 MG/DL (8.5-10.1); Osmolality,Calculated 292.3 MOS/KG (273-304); Potassium 3.8 MMOL/L (3.5-5.1); Total Protein 6.1 G/DL (6.4-8.2)
[2022-03-26 11:05] LABS: Urine Appearance Clear (Clear); Urine Color Yellow (Yellow)
[2022-03-26 11:06] LABS: Bilirubin,Urine Negative (Negative); Blood, Urine Trace mg/dL (Negative); Glucose,Urine (UA) Negative (Negative); Ketones,Urine Negative (Negative); Nitrite,Urine Positive (Negative); Protein,Urine Negative (Negative); Urine Specific Gravity 1.015 (1.001-1.035); Urine Urobilinogen < 2.0 eU/dL (<2.0); Urine pH 6.5 (4.5-8.0)
[2022-03-26 11:08] LABS: Bacteria,Urine Many /HPF (Few); Mucus,Urine Occasional /LPF (Occasional); RBC,Urine 4 /HPF (0-4); Squamous Epithelial Cell,Urine Occasional /HPF (0-10)
[2022-03-26] MEDS ORDERED: hydrALAZINE 20 MG/1 ML VIAL IV STA (12:00)
[2022-03-26] MEDS ORDERED: hydrALAZINE 20 MG/1 ML VIAL ONE (12:01)
[2022-03-26] MEDS ORDERED: ALBUTEROL 2.5 MG/3 ML NEB RESP TX PRN (12:55)
[2022-03-26] MEDS ORDERED: ONDANSETRON 4 MG/2 ML VIAL IV PRN (12:55)
[2022-03-26] MEDS ORDERED: hydrALAZINE 20 MG/1 ML VIAL IV PRN (12:55)
[2022-03-26] MEDS ORDERED: amLODIPine 10 MG TABLET PO PRN (13:27)
[2022-03-26] MEDS ORDERED: ENOXAPARIN 80 MG/0.8 ML SYRINGE SUBCUT SCH (13:30)
[2022-03-26] MEDS: LACTATED RINGERS 1,000 ML IV SCH (15:12)
[2022-03-26] MEDS: carvediloL 6.25 MG TABLET PO SCH (22:54)
[2022-03-26] MEDS: FLECAINIDE 50 MG TABLET PO SCH (22:55)
[2022-03-26] MEDS: ATORVASTATIN 40 MG TABLET PO SCH (22:55)
[2022-03-27 05:13] LABS: Basophils % 0.3 % (0.0-0.8); Hematocrit 33.8 VOL% (35.7-47.0); Hemoglobin 11.3 GM/DL (12.0-16.0); Immature Granulocytes Absolute 0.15 #; Lymphocytes # 0.9 10*3/uL (1.4-4.0); Lymphocytes % 5.9 % (21.3-54.2); Mean Corpuscular HGB Conc 33.4 GM/DL (32-36); Mean Corpuscular Volume 97.1 FL (87-102); Monocytes # 0.7 10*3/uL (0.11-0.8); Monocytes % 4.7 % (1.7-12.7); Neutrophils % 88.1 % (38.7-73.9); Platelet Count 228 T/CUMM (130-400); Red Blood Count 3.48 MC/CUMM (3.8-5.5); Red Cell Distribution Width 13.4 % (9.3-17.3); White Blood Count 15.1 T/CUMM (4-12)
[2022-03-27 05:47] LABS: Calcium 9.7 MG/DL (8.5-10.1); Osmolality,Calculated 285.3 MOS/KG (273-304); Risk Ratio 2.82; Thyroid Stimulating Hormone 0.368 uIU/ml (0.358-3.74); VLDL Cholesterol 12.2 MG/DL
[2022-03-27] MEDS: LACTATED RINGERS 1,000 ML IV SCH ×2 (05:58→20:44)
[2022-03-27] MEDS ORDERED: SODIUM CHLORIDE 0.45% 1,000 ML IV SCH (08:00)
[2022-03-27] MEDS ORDERED: DIAZEPAM 5 MG TABLET PO ONE (10:00)
[2022-03-27] MEDS ORDERED: diphenhydrAMINE CAP 50 MG CAPSULE PO ONE (10:00)
[2022-03-27] MEDS: ASPIRIN EC 81 MG TABLET PO SCH (10:36)
[2022-03-27] MEDS: PANTOPRAZOLE 40 MG TABLET PO SCH (10:36)
[2022-03-27] MEDS: carvediloL 6.25 MG TABLET PO SCH (10:37)
[2022-03-27] MEDS: amLODIPine 5 MG TABLET PO SCH (10:37)
[2022-03-27] MEDS: FLECAINIDE 50 MG TABLET PO SCH ×2 (10:50→20:42)
[2022-03-27] MEDS ORDERED: diphenhydrAMINE CAP 25 MG CAPSULE ONE (12:01)
[2022-03-27] MEDS ORDERED: DIAZEPAM 5 MG TABLET ONE (12:01)
[2022-03-27] MEDS ORDERED: NITROGLYCERIN DRIP 50 MG/250 ML BOTTLE IV ONE (12:09)
[2022-03-27] MEDS ORDERED: MIDAZOLAM 2 MG/2 ML VIAL ONE (12:09)
[2022-03-27] MEDS ORDERED: HYDROmorphone 1 MG/1 ML SYRINGE ONE (12:09)
[2022-03-27] MEDS ORDERED: VERAPAMIL 5 MG/2 ML VIAL ONE (12:09)
[2022-03-27] MEDS ORDERED: LABETALOL 20 MG/4 ML SYRINGE IV ONE (12:41)
[2022-03-27] MEDS ORDERED: hydrALAZINE 20 MG/1 ML VIAL ONE (12:47)
[2022-03-27] MEDS: ATORVASTATIN 40 MG TABLET PO SCH (20:42)
[2022-03-27] MEDS: NEBIVOLOL 5 MG TABLET PO SCH (20:42)
[2022-03-28 05:13] LABS: Basophils # 0.1 10*3/uL (0.0-0.2); Basophils % 0.6 % (0.0-0.8); Eosinophils # 0.2 10*3/uL (0.0-0.87); Eosinophils % 1.2 % (0.00-10.9); Hematocrit 36.6 VOL% (35.7-47.0); Hemoglobin 12.2 GM/DL (12.0-16.0); Immature Granulocytes % 0.7 %; Lymphocytes # 1.8 10*3/uL (1.4-4.0); Lymphocytes % 12.1 % (21.3-54.2); Mean Corpuscular HGB Conc 33.3 GM/DL (32-36); Mean Corpuscular Volume 98.1 FL (87-102); Mean Platelet Volume 9.3 FL (9.6-12.0); Monocytes # 1.3 10*3/uL (0.11-0.8); Monocytes % 8.4 % (1.7-12.7); Platelet Count 251 T/CUMM (130-400); Red Blood Count 3.73 MC/CUMM (3.8-5.5); Red Cell Distribution Width 13.5 % (9.3-17.3); White Blood Count 15.3 T/CUMM (4-12)
[2022-03-28 05:33] LABS: Calcium 10.1 MG/DL (8.5-10.1); Osmolality,Calculated 276.7 MOS/KG (273-304); Potassium 4.3 MMOL/L (3.5-5.1)
[2022-03-28] MEDS: ACETAMINOPHEN 325 MG TABLET PO PRN (05:42)
[2022-03-28] MEDS: LACTATED RINGERS 1,000 ML IV SCH ×2 (05:46→18:13)
[2022-03-28] MEDS: amLODIPine 5 MG TABLET PO SCH (09:28)
[2022-03-28] MEDS: ASPIRIN EC 81 MG TABLET PO SCH (09:28)
[2022-03-28] MEDS: NEBIVOLOL 5 MG TABLET PO SCH ×2 (09:28→20:34)
[2022-03-28] MEDS: PANTOPRAZOLE 40 MG TABLET PO SCH (09:28)
[2022-03-28] MEDS: FLECAINIDE 50 MG TABLET PO SCH (09:29)
[2022-03-28] MEDS: MEROPENEM 500 MG in SODIUM CHLORIDE 0.9% 100 ML IV SCH ×2 (18:13→23:48)
[2022-03-28] MEDS: ATORVASTATIN 40 MG TABLET PO SCH (20:34)
[2022-03-29] MEDS: MEROPENEM 500 MG in SODIUM CHLORIDE 0.9% 100 ML IV SCH ×3 (05:36→18:19)
[2022-03-29 05:53] LABS: Calcium 8.9 MG/DL (8.5-10.1); Potassium 3.8 MMOL/L (3.5-5.1)
[2022-03-29 06:47] LABS: Basophils % 0.3 % (0.0-0.8); Eosinophils # 0.5 10*3/uL (0.0-0.87); Eosinophils % 4.3 % (0.00-10.9); Hematocrit 32.8 VOL% (35.7-47.0); Hemoglobin 11.2 GM/DL (12.0-16.0); Immature Granulocytes % 0.3 %; Immature Granulocytes Absolute 0.04 #; Lymphocytes # 1.7 10*3/uL (1.4-4.0); Mean Corpuscular HGB Conc 34.1 GM/DL (32-36); Mean Corpuscular Volume 96.5 FL (87-102); Mean Platelet Volume 8.9 FL (9.6-12.0); Monocytes # 1.4 10*3/uL (0.11-0.8); Monocytes % 11.8 % (1.7-12.7); Neutrophils % 68.3 % (38.7-73.9); Platelet Count 197 T/CUMM (130-400); Red Cell Distribution Width 13.2 % (9.3-17.3); White Blood Count 11.5 T/CUMM (4-12)
[2022-03-29] MEDS: NEBIVOLOL 5 MG TABLET PO SCH ×2 (08:41→21:40)
[2022-03-29] MEDS: amLODIPine 5 MG TABLET PO SCH (08:41)
[2022-03-29] MEDS: PANTOPRAZOLE 40 MG TABLET PO SCH (08:41)
[2022-03-29] MEDS: ASPIRIN EC 81 MG TABLET PO SCH (08:41)
[2022-03-29] MEDS: LACTATED RINGERS 1,000 ML IV SCH ×2 (08:42→22:04)
[2022-03-29] MEDS: ACETAMINOPHEN 325 MG TABLET PO PRN ×3 (08:42→21:40)
[2022-03-29] MEDS: ATORVASTATIN 40 MG TABLET PO SCH (21:40)
[2022-03-29] MEDS: HEPARIN 5,000 UNIT/1 ML VIAL SUBCUT SCH (21:42)
[2022-03-30] MEDS: MEROPENEM 500 MG in SODIUM CHLORIDE 0.9% 100 ML IV SCH ×4 (00:43→18:28)
[2022-03-30] MEDS: PANTOPRAZOLE 40 MG TABLET PO SCH (09:01)
[2022-03-30] MEDS: amLODIPine 10 MG TABLET PO SCH (09:01)
[2022-03-30] MEDS: NEBIVOLOL 5 MG TABLET PO SCH ×2 (09:01→21:28)
[2022-03-30] MEDS: HEPARIN 5,000 UNIT/1 ML VIAL SUBCUT SCH ×2 (09:01→21:29)
[2022-03-30] MEDS: ASPIRIN EC 81 MG TABLET PO SCH (09:01)
[2022-03-30 09:49] LABS: Basophils # 0.1 10*3/uL (0.0-0.2); Basophils % 0.7 % (0.0-0.8); Eosinophils # 0.6 10*3/uL (0.0-0.87); Eosinophils % 6.3 % (0.00-10.9); Hematocrit 33.6 VOL% (35.7-47.0); Hemoglobin 11.2 GM/DL (12.0-16.0); Immature Granulocytes % 0.4 %; Immature Granulocytes Absolute 0.04 #; Lymphocytes # 1.4 10*3/uL (1.4-4.0); Lymphocytes % 15.1 % (21.3-54.2); Mean Corpuscular HGB Conc 33.3 GM/DL (32-36); Mean Corpuscular Volume 98.2 FL (87-102); Mean Platelet Volume 9.2 FL (9.6-12.0); Monocytes # 0.7 10*3/uL (0.11-0.8); Monocytes % 7.7 % (1.7-12.7); Neutrophils % 69.8 % (38.7-73.9); Platelet Count 206 T/CUMM (130-400); Red Blood Count 3.42 MC/CUMM (3.8-5.5); Red Cell Distribution Width 13.2 % (9.3-17.3); White Blood Count 9.5 T/CUMM (4-12)
[2022-03-30 10:02] LABS: Calcium 9.2 MG/DL (8.5-10.1); Osmolality,Calculated 283.3 MOS/KG (273-304); Potassium 3.3 MMOL/L (3.5-5.1)
[2022-03-30] MEDS ORDERED: POTASSIUM CHLORIDE 20 MEQ TABLET PO ONE (16:14)
[2022-03-30] MEDS: ACETAMINOPHEN 325 MG TABLET PO PRN (21:28)
[2022-03-30] MEDS: ATORVASTATIN 40 MG TABLET PO SCH (21:28)
[2022-03-30] MEDS: LACTATED RINGERS 1,000 ML IV SCH (22:44)
[2022-03-31] MEDS: LACTATED RINGERS 1,000 ML IV SCH ×3 (00:12→13:08)
[2022-03-31] MEDS: MEROPENEM 500 MG in SODIUM CHLORIDE 0.9% 100 ML IV SCH ×5 (00:35→23:30)
[2022-03-31 06:12] LABS: Basophils # 0.1 10*3/uL (0.0-0.2); Basophils % 0.8 % (0.0-0.8); Eosinophils # 0.7 10*3/uL (0.0-0.87); Eosinophils % 8.2 % (0.00-10.9); Hemoglobin 10.6 GM/DL (12.0-16.0); Immature Granulocytes % 0.6 %; Immature Granulocytes Absolute 0.05 #; Lymphocytes # 1.9 10*3/uL (1.4-4.0); Mean Corpuscular HGB Conc 33.1 GM/DL (32-36); Mean Corpuscular Volume 98.2 FL (87-102); Monocytes # 1.1 10*3/uL (0.11-0.8); Monocytes % 12.1 % (1.7-12.7); Neutrophils % 56.3 % (38.7-73.9); Platelet Count 202 T/CUMM (130-400); Red Blood Count 3.26 MC/CUMM (3.8-5.5); Red Cell Distribution Width 13.1 % (9.3-17.3); White Blood Count 8.7 T/CUMM (4-12)
[2022-03-31 06:30] LABS: Calcium 9.3 MG/DL (8.5-10.1); Osmolality,Calculated 279.4 MOS/KG (273-304); Potassium 3.6 MMOL/L (3.5-5.1)
[2022-03-31] MEDS: NEBIVOLOL 5 MG TABLET PO SCH ×2 (08:36→21:33)
[2022-03-31] MEDS: ASPIRIN EC 81 MG TABLET PO SCH (08:43)
[2022-03-31] MEDS: amLODIPine 10 MG TABLET PO SCH (08:43)
[2022-03-31] MEDS: PANTOPRAZOLE 40 MG TABLET PO SCH (08:43)
[2022-03-31] MEDS: HEPARIN 5,000 UNIT/1 ML VIAL SUBCUT SCH ×2 (08:44→21:32)
[2022-03-31] MEDS: ACETAMINOPHEN 325 MG TABLET PO PRN ×2 (17:19→23:30)
[2022-03-31] MEDS: ATORVASTATIN 40 MG TABLET PO SCH (21:32)
[2022-04-01] MEDS: LACTATED RINGERS 1,000 ML IV SCH ×2 (04:05→04:06)
[2022-04-01] MEDS: ACETAMINOPHEN 325 MG TABLET PO PRN (05:35)
[2022-04-01] MEDS: MEROPENEM 500 MG in SODIUM CHLORIDE 0.9% 100 ML IV SCH ×2 (05:35→11:34)
[2022-04-01] MEDS: NEBIVOLOL 5 MG TABLET PO SCH (08:25)
[2022-04-01] MEDS: ASPIRIN EC 81 MG TABLET PO SCH ×2 (08:26→08:30)
[2022-04-01] MEDS: amLODIPine 10 MG TABLET PO SCH (08:26)
[2022-04-01] MEDS: HEPARIN 5,000 UNIT/1 ML VIAL SUBCUT SCH (08:27)
[2022-04-01] MEDS: PANTOPRAZOLE 40 MG TABLET PO SCH (08:27)
[2022-04-01 08:38] LABS: Basophils # 0.1 10*3/uL (0.0-0.2); Eosinophils # 0.6 10*3/uL (0.0-0.87); Eosinophils % 7.3 % (0.00-10.9); Hematocrit 35.6 VOL% (35.7-47.0); Immature Granulocytes % 0.4 %; Immature Granulocytes Absolute 0.03 #; Lymphocytes # 1.9 10*3/uL (1.4-4.0); Mean Corpuscular HGB Conc 33.7 GM/DL (32-36); Mean Platelet Volume 8.9 FL (9.6-12.0); Monocytes % 12.1 % (1.7-12.7); Neutrophils % 55.2 % (38.7-73.9); Platelet Count 229 T/CUMM (130-400); Red Blood Count 3.71 MC/CUMM (3.8-5.5); Red Cell Distribution Width 13.1 % (9.3-17.3)
[2022-04-01 08:59] LABS: Calcium 9.8 MG/DL (8.5-10.1); Osmolality,Calculated 275.7 MOS/KG (273-304); Potassium 3.9 MMOL/L (3.5-5.1)
[2022-04-01 11:39] VITALS: BP 154/73
== END 2022-04-01 15:20 | disposition swing bed (61) ==
LOC: N.ED 08:44 → N.EDINP 08:44 → SUATTDRO 12:55 → N.EDINP 15:20 → N.TELEN 15:45
PROVIDERS: ADMIT Internal Medicine; ATTEND Internal Medicine
PROC: CLCCHCL (ICD-10-PCS; 2022-03-27 11:45)